=== PATIENT | female | born 1975 | race Caucasian/White ===

== ENCOUNTER 2018-06-19 10:55 | Emergency (ER) | payer SELFPAY ==
[2018-06-19 11:05] VITALS: BP 123/79; PULSE 74; TEMP 98.1; BMI 22.8
[2018-06-19] MEDS ORDERED: KETOROLAC TROMETHAMINE 30 MG/1 ML VIAL IM ONE (11:47)
--- NOTE | 2018-06-19 11:53 | PDOC ---
History of Present Illness - General Chief Complaint: Headache Stated Complaint: INJURY, HEADACHE Time Seen by Provider: 06/19/18 11:11 History Source: Patient Exam Limitations: No Limitations - History of Present Illness Initial Comments: 06/19/18 11:47 HISTORY OF PRESENT ILLNESS: Social 42-year-old woman who presents emergency Department with occipital headache for 2 days status post striking her head on [email or web address]. Patient states she was admitted tension when she moved her head back and struck this shelf. She denies any loss of consciousness or collapse at that time. Patient is been taking Tylenol which has had minimal relief of symptoms. Patient currently reports her pain is 9/10 and describes as a throbbing pulling sensation. She denies any blurry vision, dizziness, nausea, vomiting. No recent travel or sick contacts. PAST MEDICAL HISTORY: Denies past medical history SURGICAL HISTORY: Denies ALLERGIES: No known drug allergies REVIEW OF SYSTEMS General/Constitutional: Denies fever or chills. Denies weakness, weight change. HEENT: Denies change in vision. Denies ear pain or discharge. Denies sore throat. Cardiovascular: Denies chest pain or shortness of breath. Respiratory: Denies cough, wheezing, or hemoptysis. Gastrointestinal: Denies nausea, vomiting, diarrhea or constipation. Denies rectal bleeding. Genitourinary: Denies dysuria, frequency, or change in urination. Musculoskeletal: Denies joint or muscle swelling or pain. Denies neck or back pain. Skin and breasts: Denies rash or easy bruising. Neurologic: +Occipital headache. Denies vertigo, loss of consciousness, or loss of sensation. Psychiatric: Denies depression or anxiety. Endocrine: Denies increased thirst. Denies abnormal weight change. Hematologic/Lymphatic: Denies anemia, easy bleeding, or history of blood clots. Allergic/Immunologic: Denies hives or skin allergy. Denies latex allergy. PHYSICAL EXAM General Appearance: Well-appearing, appropriately dressed. No apparent distress , no intoxication. HEENT: EOMI, PERRLA, normal ENT inspection, normal voice, TMs normal, pharynx normal. No conjunctival pallor. No photophobia, scleral icterus. No hemotympanum. Neck: Supple. Trachea midline. No tenderness, rigidity, carotid bruit, stridor , lymphadenopathy, or thyromegaly. Respiratory/Chest: Lungs CTAB. No shortness of breath, chest tenderness, respiratory distress, accessory muscle use. No crackles, rales, rhonchi, stridor , wheezing, dullness Cardiovascular: RRR. S1, S2. No JVD, murmur, bradycardia, tachycardia. Vascular Pulses: Dorsalis-Pedis (R): 2+, Dorsalis-Pedis (L): 2+ Gastrointestinal/Abdominal: Normal bowel sounds. Abdomen soft, non-distended. No tenderness or rebound tenderness. No organomegaly, pulsatile mass, guarding, hernia, hepatomegaly, splenomegaly. Lymphatic: No adenopathy, tenderness. Musculoskeletal/Extremities: Normal inspection. FROM of all extremities, normal capillary refill. Pelvis Stable. No CVA tenderness. No tenderness to extremities, pedal edema, swelling, erythema or deformity. Palpable muscle spasm noted to the left SCM at insertion point. Integumentary: Appropriate color, dry, warm. 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 Fully oriented, alert. Appropriate mood/affect. Motor strength 5/5. No appreciable EOM palsy, facial droop or sensory deficit. Past History - Past Medical History Allergies/Adverse Reactions: Allergies Allergy/AdvReac Type Severity Reaction Status Date / Time Penicillins Allergy Verified 06/19/18 11:02 Home Medications: Ambulatory Orders Acetaminophen [Tylenol] 650 mg PO QID PRN 06/19/18 - Suicide/Smoking/Psychosocial Hx Smoking History: Never smoked *Physical Exam - Vital Signs Last Vital Signs Temp Pulse Resp BP Pulse Ox 98.1 F 74 16 123/79 100 06/19/18 11:03 06/19/18 11:03 06/19/18 11:03 06/19/18 11:03 06/19/18 11:03 Medical Decision Making - Medical Decision Making 06/19/18 11:48 A/P: 42-year-old woman with worsening headache status post head trauma PERRLA, EOMI Cranial nerves II through XII grossly intact. Gait steady No hemotympanum noted Strength 5/5 in all extremities No sensory deficits present Urine , Toradol, reassess 06/19/18 12:12 Patient reports acceptable relief of headache after receiving Toradol. I'll discharge the patient home. *DC/Admit/Observation/Transfer Diagnosis at time of Disposition: Post-concussion headache - Discharge Dispostion Disposition: HOME Condition at time of disposition: Stable Decision to Admit order: No - Referrals Referrals: Jarocho Georges MD [Primary Care Provider] - - Patient Instructions Additional Instructions: Take Tylenol or Motrin as needed for headaches. Keep a diary of all food to eat and activities performed prior to headaches starting. Make an appointment with her primary doctor for reevaluation within the next week. Return to emergency department for worsening headache, blurry vision, dizziness , nausea, vomiting or any other concerns. Thank you very much for for choosing us to provide emergent health care needs. - Post Discharge Activity
[2018-06-19] MEDS ORDERED: KETOROLAC TROMETHAMINE 30 MG/1 ML VIAL ONE (12:05)
== END 2018-06-19 12:15 | disposition home or self-care (01) ==
LOC: JERFT 10:55
PROC: 3E0233Z Introduction of Anti-inflammatory into Muscle, Percutaneous Approach (ICD-10-PCS; principal; 2018-06-19)
DX: S06.0X0A Concussion without loss of consciousness, initial encounter (principal); W22.8XXA Striking against or struck by other objects, initial encounter; Y93.89 Activity, other specified; Y92.512 Supermarket, store or market as the place of occurrence of the external cause; Y99.8 Other external cause status
CPT/HCPCS: 84703; 99281-25

== ENCOUNTER 2019-01-17 18:31 | Emergency (ER) | payer OTHER ==
[2019-01-17 18:39] VITALS: BP 143/88; PULSE 89; TEMP 98.3; BMI 23.0
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
[2019-01-17] MEDS ORDERED: KETOROLAC TROMETHAMINE 60 MG/2 ML VIAL IM ONE (19:16)
[2019-01-17] MEDS ORDERED: KETOROLAC TROMETHAMINE 60 MG/2 ML VIAL ONE (19:24)
== END 2019-01-17 19:31 | disposition home or self-care (01) ==
LOC: JER 18:31 → JERFT 18:31
DX: S13.4XXA Sprain of ligaments of cervical spine, initial encounter (principal); M62.830 Muscle spasm of back; V43.52XA Car driver injured in collision with other type car in traffic accident, initial encounter; Y92.414 Local residential or business street as the place of occurrence of the external cause; Y93.89 Activity, other specified; Y99.8 Other external cause status
CPT/HCPCS: 99281-25

== ENCOUNTER 2020-10-26 19:03 | Emergency (ER) | payer OTHER ==
[2020-10-26 19:09] VITALS: BP 132/86; PULSE 95; TEMP 98.4; BMI 23.7
[2020-10-26] MEDS ORDERED: FAMOTIDINE 20 MG/50 ML IVPB 20 MG/50 ML MG IVPB ONE ×2 (21:57→22:15)
[2020-10-26] MEDS ORDERED: LACTATED RINGERS SOLUTION 1000 ML INFUS.BAG IV ONE (21:57)
[2020-10-26] MEDS ORDERED: ACETAMINOPHEN 1000 MG/100 ML VIAL (NON FORMULARY) IVPB ONE (21:57)
[2020-10-26 22:01] LABS: BASO % 0.6 % (0-2.0); EOS % 0.4 % (0-4.5); HEMOGLOBIN 13.6 GM/dL (10.7-15.3); LYMPH % 35.7 % (8-40); MCH 29.3 pg (25.7-33.7); MCHC 33.2 g/dl (32.0-36.0); MEAN CELL VOLUME 88.1 fl (80-96); MEAN PLT VOLUME 10.5 fl (7.5-11.1); NEUT % 57.3 % (42.8-82.8); PLATELET COUNT 202 K/MM3 (134-434); RBC 4.66 M/mm3 (3.60-5.2); RDW 13.6 % (11.6-15.6); WHITE BLOOD COUNT 8.8 K/mm3 (4.0-10.0)
[2020-10-26 22:09] LABS: INR 0.96 (0.83-1.09); PROTHROMBIN TIME (PATIENT) 11.8 SEC (9.7-13.0)
[2020-10-26 22:11] LABS: ACTIVATED PTT 32.2 SECONDS (25.2-36.5)
[2020-10-26] MEDS ORDERED: ACETAMINOPHEN INJECTION 100 ML IVPB ONE (22:15)
[2020-10-26 22:16] LABS: CHLORIDE 105 mmol/L (98-107); POTASSIUM 3.9 mmol/L (3.5-5.1)
[2020-10-26 22:19] LABS: ALBUMIN 3.8 g/dl (3.4-5.0); CALCIUM 8.9 mg/dL (8.5-10.1); CO2 27 mmol/L (21-32); LIPASE 146 U/L (73-393)
[2020-10-26 22:20] LABS: BLOOD UREA NITROGEN 10.3 mg/dL (7-18); GLUCOSE,RANDOM 89 mg/dL (74-106); MAGNESIUM 2.2 mg/dL (1.8-2.4); URINE APPEARANCE CLEAR; URINE BILIRUBIN NEGATIVE (NEGATIVE); URINE COLOR YELLOW; URINE GLUCOSE (UA) NEGATIVE (NEGATIVE); URINE KETONE TRACE (NEGATIVE); URINE LEUK ESTERASE NEGATIVE (NEGATIVE); URINE NITRITE NEGATIVE (NEGATIVE); URINE PROTEIN NEGATIVE (NEGATIVE); URINE UROBILINOGEN 0.2 mg/dL (0.2-1.0)
[2020-10-26 22:22] LABS: CREATININE 0.8 mg/dL (0.55-1.3); SGOT/AST 18 U/L (15-37); SGPT/ALT 23 U/L (13-61)
[2020-10-26 22:24] LABS: BILIRUBIN,TOTAL 0.4 mg/dL (0.2-1); TOT PROT 7.8 g/dl (6.4-8.2)
[2020-10-26 22:25] LABS: ALK PHOS 46 U/L (45-117)
[2020-10-26 22:27] LABS: ANION GAP 11 MMOL/L (8-16); SODIUM 142 mmol/L (136-145)
[2020-10-26 22:31] LABS: HCG,QUALITATIVE URINE NEGATIVE
== END 2020-10-27 03:39 | disposition home or self-care (01) ==
LOC: JER 19:03
PROC: 3E0337Z Introduction of Electrolytic and Water Balance Substance into Peripheral Vein, Percutaneous Approach (ICD-10-PCS; principal; 2020-10-26)
PROC: 3E033GC Introduction of Other Therapeutic Substance into Peripheral Vein, Percutaneous Approach (ICD-10-PCS; 2020-10-26)
DX: R10.32 Left lower quadrant pain (principal); N83.202 Unspecified ovarian cyst, left side
CPT/HCPCS: 36415; 71045-TC-FY; 74177-TC; 76830-TC; 80053; 81003; 82550; 83690; 83735; 84484; 84703; 85025; 85610; 85730; 87086; 93005; 93010; 99285-25; J0131; Q9967

== ENCOUNTER 2020-12-01 04:21 | Day surgery (SDC) | payer OTHER ==
[2020-11-30 11:27] VITALS: BMI 25.3
[2020-12-01 07:08] VITALS: BP 118/77; PULSE 64; TEMP 97.8
== END 2020-12-01 07:30 | disposition home or self-care (01) ==
LOC: JASU-ENDO 04:21
PROVIDERS: ATTEND Internal Medicine Gastroenterology
DX: Z53.8 Procedure and treatment not carried out for other reasons (principal)
CPT/HCPCS: 81025

== ENCOUNTER 2021-01-05 04:37 | Day surgery (SDC) | payer OTHER ==
[2021-01-04 15:47] VITALS: BMI 23.8
[2021-01-05 10:09] VITALS: TEMP 97.7
[2021-01-05 10:39] VITALS: BP 104/70; PULSE 73
== END 2021-01-05 10:57 | disposition home or self-care (01) ==
LOC: JASU-ENDO 04:37
PROVIDERS: ATTEND Internal Medicine Gastroenterology
PROC: 0DB78ZX Excision of Stomach, Pylorus, Via Natural or Artificial Opening Endoscopic, Diagnostic (ICD-10-PCS; 2021-01-05)
PROC: 0DJD8ZZ Inspection of Lower Intestinal Tract, Via Natural or Artificial Opening Endoscopic (ICD-10-PCS; principal; 2021-01-05 08:45)
DX: K29.50 Unspecified chronic gastritis without bleeding (principal); R10.32 Left lower quadrant pain; R10.13 Epigastric pain
CPT/HCPCS: 81025; 88305-TC; 88342-TC

== ENCOUNTER 2024-03-09 04:25 | Day surgery (SDC) | payer OTHER ==
[2024-03-05 16:53] VITALS: BMI 23.9
[2024-03-09] MEDS ORDERED: VASopressin 20 UNITS/ML VIAL IV ONE (12:19)
[2024-03-09] MEDS ORDERED: LIDOCAINE 1%/EPI 1:100000 (20 ML MULTI DOSE VIAL) ONE (13:01)
[2024-03-09] MEDS ORDERED: oxyCODONE HCL 5 MG TABLET PO PRN (13:07)
[2024-03-09] MEDS ORDERED: ONDANSETRON 4 MG/2 ML VIAL IVPUSH PRN (13:07)
[2024-03-09] MEDS ORDERED: DEXAMETHASONE SOD PHOSPHATE 4 MG/1 ML VIAL ONE (14:43)
[2024-03-09] MEDS ORDERED: KETOROLAC TROMETHAMINE 30 MG/1 ML VIAL ONE (14:43)
[2024-03-09] MEDS ORDERED: CLINDAMYCIN PHOSPHATE 600 MG/4 ML VIAL ONE (14:43)
[2024-03-09] MEDS ORDERED: LIDOCAINE HCL/PF 2% SDV 5ML VIAL ONE ×2 (14:43→14:47)
[2024-03-09] MEDS: CLINDAMYCIN 600 MG PREMIX BAG IVPB ONE (14:47)
[2024-03-09] MEDS ORDERED: MIDAZOLAM HCL 2 MG/2 ML SINGLE DOSE VIAL ONE (14:47)
[2024-03-09] MEDS ORDERED: SUCCINYLCHOLINE CHLORIDE 200 MG/10 ML SYRINGE ONE (14:50)
[2024-03-09] MEDS: LIDOCAINE 1%/EPI 1:100000 (20 ML MULTI DOSE VIAL) IJ ONE (15:00)
[2024-03-09] MEDS ORDERED: GENTAMICIN SO4 80 MG/2 ML VIAL ONE (15:06)
[2024-03-09] MEDS: GENTAMICIN SO4 80 MG/2 ML VIAL IVPB ONE (15:10)
[2024-03-09] MEDS ORDERED: ACETAMINOPHEN INJECTION 100 ML IVPB ONE (15:17)
[2024-03-09] MEDS: LACTATED RINGERS SOLUTION 1,000 ML IV SCH (16:45)
[2024-03-09 17:12] VITALS: RESP 16
[2024-03-09 17:55] VITALS: BP 111/62; PULSE 66; TEMP 97.5
== END 2024-03-09 18:19 | disposition home or self-care (01) ==
LOC: JASU-SURG 04:25
PROVIDERS: ATTEND Urology
PROC: 0TSD0ZZ Reposition Urethra, Open Approach (ICD-10-PCS; principal; 2024-03-09 13:00)
DX: N39.3 Stress incontinence (female) (male) (principal)
CPT/HCPCS: 57288; C1771; 81025; 94760; J0131